=== PATIENT | male | born 1930 | race Caucasian/White ===

== ENCOUNTER 2018-02-23 23:24 | Emergency (ER) | payer MEDICARE, BC ==
[~2018-02-23] VITALS: Ht 172.7 cm; Wt 140.2 kg
[~2018-02-23 23:24] MED LIST: ASA81 MG PO; ASPIRIN81 MG PO; CLONIDINE HCL0.2 MG PO; ISOSORBIDE MONO30 MG PO; MAALOX PO; ROBAXIN750 MG PO; TYLENOL500 MG PO; Z.0.ANTIVERT25 MG PO; Z.0.CIPRO500 MG PO; Z.0.FLAGYL500 MG PO; Z.0.NEXIUM40 MG PO; Z.0.VICODIN 5-5001 E PO; Z.0.VICODIN HP TAB1 PO; Z.3.CENTRUM SILVER1 PO
--- NOTE | 2018-02-24 00:40 | Diagnostic Imaging Report ---
Exams: Head and cervical spine CTs without IV contrast History: Trauma, fall Comparison studies: Head and cervical spine CTs Technique: Axial images were obtained from the brain and cervical spine. Coronal and sagittal images reconstructed from the axial data. Intravenous contrast: None Findings: Head CT: Scalp: No abnormalities. Bones: No fractures, blastic or lytic lesions. Extra-axial spaces: No masses. No fluid collections. Brain sulci: Appropriate for patient's age. Ventricles: Mild compensatory dilatation. No hydrocephalus. Parenchyma: No abnormal densities. No mass, acute hemorrhage or acute or chronic cortical vascular insults. A few hypodensities in the supratentorial white matter are nonspecific but most compatible with chronic microvascular ischemic changes. Sellar/suprasellar region: No abnormalities. Craniocervical junction: The foramen magnum is patent. No Chiari one malformation. Cervical spine CT: Fractures: None. Soft tissues: No gross acute abnormalities. Atlantoaxial articulation: Intact. Alignment: Mild hyperlordotic curvature. Unchanged minimal retrolisthesis of C3 on C4 4 which is most likely degenerative in etiology. Cervicomedullary junction: No abnormalities. The foramen magnum is patent. Vertebrae: No infection or neoplasm. Degenerative changes: Minimal retrolisthesis of C3 on C4 with disc osteophyte complex and disc osteophyte complex at C4-C5 results in only mild canal stenosis. Moderate right C4-C5 foraminal stenosis due to uncovertebral and facet arthrosis. Incidental findings: Grossly unchanged 10 mm right thyroid lobe nodule. Calcified atherosclerosis in the cervical carotid bulbs and in the carotid siphons. IMPRESSION: Head CT: 1. No acute abnormalities. 2. Mild chronic microvascular ischemic changes. 3. No significant changes from the previous head CT of 11/23/2012. Cervical spine CT: 1. No cervical spine fracture or acute subluxation. 2. Degenerative changes as described. 3. Cannot adequate evaluate ligament, spinal cord and or vascular abnormalities on the basis of this examination. Signed by: Dr. Venu Magaña M.D. on 02/24/2018 12:37 AM
--- NOTE | 2018-02-24 01:50 | Diagnostic Imaging Report ---
EXAM: KNEE RIGHT THREE VIEWS, AP, lateral and oblique INDICATION: Fall COMPARISON: None FINDINGS: BONES: No acute fractures. JOINTS: No malalignment. SOFT TISSUES: Normal IMPRESSION: No right knee fracture. Signed by: Dr. Lu Naqvi M.D. on 02/24/2018 1:47 AM
--- NOTE | 2018-02-24 01:50 | Diagnostic Imaging Report ---
EXAM: CHEST SINGLE (PORTABLE), AP 1 view INDICATION: Fall COMPARISON: None FINDINGS: LINES/TUBES: None LUNGS: No consolidations or edema. PLEURA: No effusions or pneumothorax. HEART AND MEDIASTINUM: Normal size and contour. BONES AND SOFT TISSUES: No acute findings. IMPRESSION: No acute thoracic abnormality. Signed by: Dr. Lu Naqvi M.D. on 02/24/2018 1:46 AM
--- NOTE | 2018-02-24 01:51 | Diagnostic Imaging Report ---
EXAM: HIP RIGHT 2-3 VW (+/- PELVIS) INDICATION: Fall COMPARISON: None FINDINGS: BONES: No acute fractures. JOINTS: No malalignment. SOFT TISSUES: Normal IMPRESSION: No pelvic or right hip fracture. Signed by: Dr. Lu Naqvi M.D. on 02/24/2018 1:48 AM
--- NOTE | 2018-02-24 01:53 | Diagnostic Imaging Report ---
EXAM: SHOULDER RIGHT COMPLETE, AP internal and external rotation INDICATION: Fall COMPARISON: None FINDINGS: BONES: No acute fractures. Mild deformity of the posterior superior aspect of the right shoulder likely from chronic Hill-Sachs deformity. JOINTS: No malalignment. Degenerative changes of the acromioclavicular joint. SOFT TISSUES: Normal IMPRESSION: No acute right shoulder fracture or dislocation Signed by: Dr. Lu Naqvi M.D. on 02/24/2018 1:49 AM
--- NOTE | 2018-02-24 01:54 | Diagnostic Imaging Report ---
EXAM: lumbar spine, 3 views, AP, lateral and coned lateral view INDICATION: Fall COMPARISON: None FINDINGS: BONES: Five lumbar-type vertebral bodies. Grade 1 anterolisthesis of L4 with respect to L5, likely related to degenerative changes. No acute displaced fractures. No lytic or blastic lesions. DISCS: Degenerative disc predominantly L4/L5 and L5/S1 and partially visualized lower thoracic spine. JOINTS: Facet arthropathy bilaterally predominantly at L4/L5 and L5/S1. SOFT TISSUES: Surgical clips right upper quadrant of the abdomen. Marked atherosclerotic changes of the abdominal aorta. IMPRESSION: No acute lumbar spine radiographic findings. 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 Signed by: Dr. Lu Naqvi M.D. on 02/24/2018 1:51 AM
[2018-02-24 02:09] VITALS: BP 155/72
[2018-02-24] MEDS ORDERED: NEOMYCIN/POLYMYX/BACITR OINT 0.9 GM PKT ONE (02:26)
[2018-02-24] MEDS ORDERED: NEOMYCIN/POLYMYXIN/BACITRACIN 15 GM TUBE TOP ONE (02:30)
[2018-02-24] MEDS ORDERED: NEOMYCIN/POLYMYX/BACITR OINT 0.9 GM PKT TOP ONE (02:45)
== END 2018-02-24 02:36 | disposition home or self-care (01) ==
LOC: ER 23:24
DX: S00.83XA Contusion of other part of head, initial encounter (principal); S40.011A Contusion of right shoulder, initial encounter; S70.01XA Contusion of right hip, initial encounter; S80.02XA Contusion of left knee, initial encounter; S80.01XA Contusion of right knee, initial encounter; W01.0XXA Fall on same level from slipping, tripping and stumbling without subsequent striking against object, initial encounter; Y92.231 Patient bathroom in hospital as the place of occurrence of the external cause; I10 Essential (primary) hypertension; E11.9 Type 2 diabetes mellitus without complications; E78.5 Hyperlipidemia, unspecified; Z85.828 Personal history of other malignant neoplasm of skin
CPT/HCPCS: 70450; 71045; 72100; 72125; 99283